=== PATIENT | female | born 1970 | race Hispanic/Latino ===

== ENCOUNTER 2016-12-30 08:50 | Day surgery (SDC) | payer BC ==
[2016-12-21 09:57] VITALS: BMI 32.8
[2016-12-30] MEDS ORDERED: ceFAZolin IV 1 gm in Dextrose 1 GM/50 ML BAG IVPB ONE (11:01)
[2016-12-30] MEDS ORDERED: ISOSULFAN BLUE 10 MG/ML ML SC ONE (11:01)
[2016-12-30] MEDS ORDERED: Propofol 10 mg/ml Inj (20 ML) ONE ×2 (12:37→12:59)
[2016-12-30] MEDS ORDERED: Midazolam 2 MG/2 ML VIAL ONE (12:37)
[2016-12-30] MEDS ORDERED: Lactated Ringer's 1,000 ML IV ONE ×2 (12:45→14:45)
--- NOTE | 2016-12-30 14:40 | PCM.SURG1 ---
Surgeon's Initial Post Op Note - Surgeon's Notes Surgeon: Dr. Donaldson Densitometrist: Dr. El PGY-3 Type of Anesthesia: General Endo Pre-Operative Diagnosis: Left breast cancer Operative Findings: see operative report Post-Operative Diagnosis: Left breast cancer Operation Performed: Left breast lumpectomy with needle localization and sentinel lymph node biopsy Specimen/Specimens Removed: left breast mass Estimated Blood Loss: EBL {In ML}: 30 Blood Products Given: N/A Drains Used: No Drains Post-Op Condition: Good Date of Surgery/Procedure: 12/30/16 Time of Surgery/Procedure: 14:40
[2016-12-30] MEDS ORDERED: HYDROmorphone 0.5 mg/0.5 ml ISec IVP PRN (14:43)
--- NOTE | 2016-12-30 15:22 | NM ---
HISTORY: 46Y Year old female with left breast cancer. TECHNIQUE: Multiple injections of 1 mCi total mCi of 99m Tc filtered sulfur colloid (total volume of 8 ml) were administered into the left breast tissue surrounding left areola and incised in for several minutes post injection subcutaneously and in deep left breast soft tissues. Anterior and oblique projection images of the chest were subsequently obtained. FINDINGS: Images demonstrate prominent uptake at the injection sites with focal uptake identified and at least 2 left axillary tail/ anterior axilla lymph nodes at the left chest. IMPRESSION: Positive uptake and 2 lymph nodes at the left axillary tails/left axilla as discussed above.
--- NOTE | 2016-12-30 15:36 | US ---
HISTORY: field 1 TECHNIQUE/FINDINGS: Timeout was called for ultrasound guided wire needle localization procedure for lesion: in the position: of the breast approximate 2-3 o'clock radius 8 cm from the nipple. The mass was identified with ultrasound at the using high-frequency transducer:. Overlying skin was marked for procedure. In a sterile field, overlying skin was cleaned. 2 cc cc of lidocaine was utilized for skin anesthesia and deep tissue anesthesia. Under ultrasound control, a needle wire assembly was advanced through the lesion in question at the left upper outer quadrant with the assembly adjusted to position the stiffener within the mass. The needle was subsequently removed. The wire was properly secured in good position. Confirmation of adequate wire placed was made by subsequent post procedure mammogram in lateral and craniocaudal views. Patient tolerated the procedure well with no complications. Postoperative specimen radiograph demonstrates the wire in close proximity to the surgical clip from the prior ultrasound-guided biopsy with adequate margins surrounding the clip and wire. OTHER FINDINGS: None. IMPRESSION: Status post successful needle wire localization of left breast mass as discussed above.
[2016-12-30 16:07] VITALS: RESP 16; TEMP 97.1; O2SAT 95
[2016-12-30 16:44] VITALS: BP 116/68; PULSE 60
--- NOTE | 2017-01-02 21:43 | OP ---
PROCEDURE DATE: 12/30/2016 PREOPERATIVE DIAGNOSIS: Carcinoma of left breast. POSTOPERATIVE DIAGNOSIS: Carcinoma of left breast. PROCEDURE: Left breast lumpectomy with needle localization and sentinel lymph node biopsy. SURGEON: Jaimie Donaldson MD DECK HAND: Dr. El. TYPE OF ANESTHESIA: General. DESCRIPTION OF OPERATION: With the patient in the supine position under adequate general anesthesia, the left breast and axilla were prepped and draped in the usual sterile manner. The patient had been injected with radioactive tracer for sentinel lymph node identification with localization to a node that appeared fairly low in the breast, possibly intramammary and additional Lymphazurin blue was infiltrated subdermally around the left areola to allow visual identification of the node. Using the Neoprobe, the hotspot was noted to be fairly close to where an ultrasound placed hookwire was noted exiting from the upper outer quadrant of the left breast. A transverse incision was made encompassing the entry point of the hookwire and a generous core of breast tissue was excised surrounding the wire. An area of radioactive activity was noted in the upper portion of the specimen along with some blue staining. The specimen was removed and sent for x-ray confirming that the lesion and marker clip were well within the specimen. Examination of the axilla and breast tissue after removal of the mass did not reveal any significant radioactivity indicating that the sentinel node was most likely contained within the specimen. Palpation within the axilla did not identify any additional grossly enlarged lymph nodes. The operative site was irrigated and closure was performed with running subcuticular suture of 4-0 Monocryl. Dry sterile dressing was applied. The patient tolerated the procedure well and transferred to the recovery room in stable condition. Estimated blood loss for the procedure was 30 mL. Jaimie Donaldson MD
--- NOTE | 2017-01-04 17:01 | MAM ---
PROCEDURE: POST WIRE LOCALIZATION LEFT MAMMOGRAM HISTORY: POST US GUIDED NEEDLE LOC (LEFT) COMPARISON: Diagnostic mammogram 12/06/2016. TECHNIQUE: Craniocaudal and medial lateral digital mammograms were performed of the left breast fall ultrasound-guided wire localization procedure preliminarily performed. Specimen radiography was also submitted post lumpectomy. FINDINGS: Post wire needle localization images demonstrate the wire passing through the lesion in question and posterior to the biopsy clip deployed after ultrasound-guided biopsy 12/06/2016. Confirmation of the wire is seen in both craniocaudal and medial lateral mammograms. Post fossa radiograph reveals the lesion in question containing the wire and biopsy clip close to the central portion of the lumpectomy specimen. Findings may communicate to the referring surgeon Dr. Donaldson in the operating room. IMPRESSION: Confirmation of wire localization of left breast mass an centralized location of wire and biopsy clip in specimen radiograph as per above.
== END 2016-12-30 16:46 | disposition home or self-care (01) ==
LOC: C.SDS 08:50
PROVIDERS: ATTEND Specialist
DX: C50.912 Malignant neoplasm of unspecified site of left female breast (principal)
CPT/HCPCS: 19285; 19301; 78195; 88304; 88307; A9541; G0206; J0690; J1100; J1170; J2001; J2250; J2405; J2704; J3010; J7120

== ENCOUNTER 2017-01-01 06:39 | Emergency (ER) | payer BC ==
[2017-01-01 06:39] VITALS: BMI 32.8
[2017-01-01 06:52] VITALS: O2SAT 100
[2017-01-01] MEDS ORDERED: HYDROmorphone 0.5 mg/0.5 ml ISec ONE (07:22)
[2017-01-01] MEDS ORDERED: Sodium Chloride 0.9% 1,000 ML IV STA (07:30)
[2017-01-01] MEDS ORDERED: HYDROmorphone 1 mg/ml ISec IVP STA ×2 (07:30→09:49)
[2017-01-01 07:40] LABS: BASO # 0.1 K/uL (0.0-0.2); BASO % 1.2 % (0.0-2.0); EOS # 0.2 K/uL (0.0-0.7); EOS % 2.1 % (0.0-4.0); HEMATOCRIT 35.9 % (34.0-47.0); LYMPH # 2.4 K/uL (1.0-4.3); LYMPH % 26.5 % (20.0-40.0); MEAN CELL VOLUME 84.8 fL (81.0-99.0); MEAN CORPUSCULAR HEMOGLOBIN 28.9 pg (27.0-31.0); MEAN CORPUSCULAR HGB CONC 34.1 g/dL (33.0-37.0); MEAN PLATELET VOLUME 8.2 fL (7.2-11.7); MONO # 0.6 K/uL (0.0-0.8); MONO % 6.9 % (0.0-10.0); RED CELL DISTRIBUTION WIDTH 13.2 % (11.5-14.5)
[2017-01-01] MEDS ORDERED: Sodium Chloride 0.9% 1,000 ML ONE (07:41)
[2017-01-01 07:47] LABS: CHLORIDE 104 mmol/L (98-107); SODIUM 136 mmol/L (132-148)
[2017-01-01 07:48] LABS: POTASSIUM 3.8 mmol/L (3.6-5.2)
[2017-01-01 07:50] LABS: ALB/GLOB RATIO 0.9 (1.0-2.1); ALKALINE PHOSPHATASE 69 U/L (38-126); ALT/SGPT 23 U/L (9-52); AST/SGOT 18 U/L (14-36); BILIRUBIN,TOTAL 0.3 mg/dL (0.2-1.3); BLOOD UREA NITROGEN 12 mg/dL (7-17); CALCIUM 8.9 mg/dl (8.6-10.4); CARBON DIOXIDE 20 mmol/L (22-30); GFR AFRICAN-AMERICAN > 60; GLUCOSE,RANDOM 83 mg/dL (65-105); TOTAL PROTEIN 7.6 g/dL (6.3-8.3)
[2017-01-01 09:24] LABS: URINE BILIRUBIN NEGATIVE (NEGATIVE); URINE BLOOD 1+ (NEGATIVE); URINE COLOR Yellow (YELLOW); URINE GLUCOSE (UA) NORMAL (Normal); URINE KETONE NEGATIVE (NEGATIVE); URINE LEUKOCYTE ESTERASE NEG Leu/uL (Negative); URINE PROTEIN NEGATIVE (NEGATIVE); URINE UROBILINOGEN NORMAL mg/dL (0.2-1.0); WBC URINE < 1 /hpf (0-5)
[2017-01-01 09:31] LABS: RBC URINE 3 /hpf (0-3)
--- NOTE | 2017-01-01 10:47 | RAD ---
PROCEDURE: CHEST RADIOGRAPH, 1 VIEW HISTORY: shoulder pain COMPARISON: Comparison is made to 12/21/2016 FINDINGS: LUNGS: No significant interval change in the lungs. PLEURA: No pneumothorax or pleural fluid seen. CARDIOVASCULAR: Normal. OSSEOUS STRUCTURES: No significant abnormalities. VISUALIZED UPPER ABDOMEN: Normal. OTHER FINDINGS: None. IMPRESSION: No active disease.
--- NOTE | 2017-01-01 10:53 | C.PDOC ---
History Of Present Illness 46 year old female presents to the ED complaining of right shoulder pain for past day and a half worsening yesterday. She states that 2 days ago she underwent a left breast lumpectomy for breast cancer by Dr. Donaldson. Patient describes pain as deep and throbbing. She reports that movement of shoulder and arm exacerbate pain, elevation of arm alleviates pain. She denies fevers, chest pain, or shortness of breath. Time Seen by Provider: 01/01/17 07:16 Chief Complaint (Nursing): Upper Extremity Problem/Injury History Per: Patient History/Exam Limitations: no limitations Onset/Duration Of Symptoms: Days Current Symptoms Are (Timing): Still Present Quality: Other (Throbbing) Exacerbating Factor(s): Movement Past Medical History Reviewed: Historical Data, Nursing Documentation, Vital Signs Vital Signs: Last Vital Signs Temp 97.5 F L 01/01/17 11:48 Pulse 57 L 01/01/17 11:48 Resp 18 01/01/17 11:48 BP 106/69 01/01/17 11:48 Pulse Ox 100 01/01/17 12:23 - Medical History PMH: Denies: Depression, Chronic Kidney Disease - [facility] Procedures APPLICATION OF SPLINT (02/24/12) Family History: States: Unknown Family Hx - Social History Hx Tobacco Use: No Hx Alcohol Use: No Hx Substance Use: No Review Of Systems Constitutional: Negative for: Fever Cardiovascular: Negative for: Chest Pain Respiratory: Negative for: Shortness of Breath Musculoskeletal: Positive for: Shoulder Pain Physical Exam - Physical Exam Appears: Non-toxic, No Acute Distress, Other (uncomfortable) Skin: Normal Color, Warm, Dry Head: Atraumatic, Normacephalic Eye(s): bilateral: Normal Inspection Neck: Normal, Supple Chest: No Tenderness Cardiovascular: Rhythm Regular Respiratory: Normal Breath Sounds Gastrointestinal/Abdominal: Soft, No Tenderness Extremity: No Swelling, Other (Arm in sling, Tenderness over anterior right shoulder and right upper inner arm, Decreased range of motion secondary to pain , No swelling, No edema, Pulses normal bilaterally ) Pulses: Right Brachial: Normal, Right Radial: Normal Neurological/Psych: Oriented x3, Normal Speech, Normal Cognition, Normal Motor, Normal Sensation ED Course And Treatment - Laboratory Results Result Diagrams: 01/01/17 07:36 01/01/17 07:36 O2 Sat by Pulse Oximetry: 100 - Other Rad Shoulder xray X-Ray: Viewed By Me, Read By Radiologist Interpretation: Accession No. : [id number]. Patient Name / ID : TARAN ONEIL / [id number]. Exam Date : 01/01/2017 07:36:42 ( Approved ). Study Comment : Sex / Age : F / 46Y. Creator : Landon Burnett MD. Dictator : Landon Burnett MD. Air Hole Driller : Basket Mender : Landon Burnett MD. Approver2 : Report Date : 01/01/2017 12:55:26. My Comment : . PROCEDURE: Radiographs of the Right Shoulder. HISTORY: non traumatic pain, left breast cancer. COMPARISON: No prior. FINDINGS: BONES: Normal. No fracture. JOINTS: Normal. Glenohumeral and acromioclavicular joints preserved. No osteoarthritis. SOFT TISSUES: Normal. OTHER FINDINGS: None. IMPRESSION: No evidence of acute fracture or dislocation. No evidence of destructive bony lesion. - CT Scan/US CT UE Other Rad Studies (CT/US): Read By Radiologist, Radiology Report Reviewed CT/US Interpretation: Accession No. : [id number]. Patient Name / ID : TARAN ONEIL / [id number]. Exam Date : 01/01/2017 10:07:00 ( Approved ). Study Comment : Sex / Age : F / 46Y. Creator : Enrique Kulkarni. Dictator : Landon Burnett MD. Air Hole Driller : Basket Mender : Landon Burnett MD. Approver2 : Report Date : 01/01/2017 10:32:52. My Comment : . PROCEDURE: CT of the right shoulder and arm. HISTORY: breast cancer, pain in the R arm / shoulder. COMPARISON: Comparison is made to the previous x-ray of the right shoulder dated 01/01/2017. TECHNIQUE: Axial and reformatted coronal and sagittal CT images of the right shoulder and right arm were obtained without IV contrast administration. Total exam DLP: 733.91. FINDINGS: There is no evidence of destructive bony lesion. There is no evidence of acute fracture or dislocation. There is either small ossicles or calcified soft tissue adjacent to the right humeral head and anterior to the glenohumeral joint measures 8.7 millimeter in the largest diameter. The possibility of calcified tendinitis should be considered. No evidence of soft tissue mass lesion in the right shoulder and right arm noted in this exam. The visualized portion of the right chest wall including the right ribs are grossly unremarkable. There is pleural based nodule measures 3.5 millimeter seen at the right lung image 65 series 3. IMPRESSION: No evidence of acute fracture or dislocation. No CT evidence of destructive bony lesion. Focal ossicles or calcified soft tissue seen adjacent to the right humeral head may represent calcified tendinitis. If clinically warranted further assessment by non emergent MRI of the right shoulder may be obtained. Medical Decision Making Medical Decision Making: Initial Plan: -Xray right shoulder -Pain management 01/01/17 07:30 Patient given dose of Dilaudid. Feeling improved. 01/01/17 08:15 On reevaluation patient states that pain has returned. Given dose of toradol. 01/01/17 09:30 Xray shows no acute changes, but some irregularity of the proximal humerus. Labs normal. CT Upper extremity and Venous duplex ordered. 01/01/17 09:50 Patient still in pain. Second dose of Dilaudid given. 01/01/17 11:30 CT scan shows calcific tendinitis. RUE duplex is negative for DVT. Patient now feels better and is stable to be d/c home with Ortho follow up. Disposition - [facility] Sushil Zapata MD [Staff Provider] - Disposition: HOME/ ROUTINE Disposition Time: 12:21 Condition: IMPROVED Additional Instructions: Follow up with PMD and Orthopedist within 1-2 days. Return to Ed if feel worse. Prescriptions: Lidocaine 5% [Lidoderm] 1 patch TP DAILY #30 patch Ibuprofen [Motrin Tab] 600 mg PO Q8 #30 tab Acetaminophen/Oxycodone Hydr [Percocet 10/325 mg Tab] 1 tab PO Q6H #20 tab Instructions: Calcific Tendinitis (ED) Forms: [employer] (Spanish) - Clinical Impression Clinical Impression: Calcific shoulder tendinitis - Scribe Statement The provider has reviewed the documentation as recorded by the Scribtomer Miller
--- NOTE | 2017-01-01 11:25 | CT ---
PROCEDURE: CT of the right shoulder and arm. HISTORY: breast cancer, pain in the R arm/ shoulder COMPARISON: Comparison is made to the previous x-ray of the right shoulder dated 01/01/2017 TECHNIQUE: Axial and reformatted coronal and sagittal CT images of the right shoulder and right arm were obtained without IV contrast administration. Total exam DLP: 733.91. FINDINGS: There is no evidence of destructive bony lesion. There is no evidence of acute fracture or dislocation. There is either small ossicles or calcified soft tissue adjacent to the right humeral head and anterior to the glenohumeral joint measures 8.7 millimeter in the largest diameter. The possibility of calcified tendinitis should be considered. No evidence of soft tissue mass lesion in the right shoulder and right arm noted in this exam. The visualized portion of the right chest wall including the right ribs are grossly unremarkable. There is pleural based nodule measures 3.5 millimeter seen at the right lung image 65 series 3. IMPRESSION: No evidence of acute fracture or dislocation. No CT evidence of destructive bony lesion. Focal ossicles or calcified soft tissue seen adjacent to the right humeral head may represent calcified tendinitis. If clinically warranted further assessment by non emergent MRI of the right shoulder may be obtained.
[2017-01-01 11:49] VITALS: BP 106/69; PULSE 57; RESP 18; TEMP 97.5
--- NOTE | 2017-01-01 12:56 | RAD ---
PROCEDURE: Radiographs of the Right Shoulder HISTORY: non traumatic pain, left breast cancer COMPARISON: No prior. FINDINGS: BONES: Normal. No fracture. JOINTS: Normal. Glenohumeral and acromioclavicular joints preserved. No osteoarthritis. SOFT TISSUES: Normal. OTHER FINDINGS: None. IMPRESSION: No evidence of acute fracture or dislocation. No evidence of destructive bony lesion.
--- NOTE | 2017-01-02 12:12 | VASCLAB ---
PROCEDURE: Right Upper Extremity Venous Duplex Exam HISTORY: RUE pain, h/o breast cancer PRIORS: None. TECHNIQUE: Right upper extremity, internal jugular, subclavian, axillary, brachial, ulnar, radial, basilic and upper cephalic veins were evaluated. Flow was assessed with color Doppler, compressibility, assessment of phasic flow and augmentation response. Report prepared by CHRISTI Vidal FINDINGS: RIGHT: 1. Internal Jugular: 1.1. Compressibility - Fully compressible: Thrombus - None : Flow - Phasic: Augmentation -Normal: Reflux - None. 2. Subclavian: 2.1. Compressibility - Fully compressible: Thrombus - None : Flow - Phasic: Augmentation -Normal: Reflux - None. 3. Axillary: 3.1. Compressibility - Fully compressible: Thrombus - None : Flow - Phasic: Augmentation -Normal: Reflux - None. 4. Brachial: 4.1. Compressibility - Fully compressible: Thrombus - None: Flow - Phasic: Augmentation -Normal: Reflux - None. 5. Ulnar: 5.1. Compressibility - Fully compressible: Thrombus - None: Flow - Phasic: Augmentation -Normal: Reflux - None. 6. Radial: 6.1. Compressibility - Fully compressible: Thrombus - None: Flow - Phasic: Augmentation - Normal: Reflux - None. 7. Cephalic: 7.1. Compressibility - Fully compressible: Thrombus - None: Flow - Phasic: Augmentation -Normal: Reflux - None. 8. Basilic: 8.1. Compressibility - Fully compressible: Thrombus - None: Flow - Phasic: Augmentation -Normal: Reflux - None. OTHER FINDINGS: Right: None. IMPRESSION: Right: No evidence of vein thrombosis of the right upper extremity with excellent venous flow. Normal valve function noted of the right side. Normal venous flow noted in the left internal jugular and left subclavian veins.
== END 2017-01-01 12:43 | disposition home or self-care (01) ==
LOC: C.ER 06:39
DX: M75.31 Calcific tendinitis of right shoulder (principal)
CPT/HCPCS: 71010; 73030; 73200; 80053; 81001; 82550; 84703; 85025; 93971; 96361; 96374; 96375; 96376; 99285; J1170; J1885; J7040

== ENCOUNTER 2018-06-07 11:38 | Emergency (ER) | payer BC ==
[2018-06-07 11:38] VITALS: BMI 32.8
[2018-06-07] MEDS ORDERED: Sodium Chloride 0.9% 1,000 ML IV STA (12:49)
[2018-06-07] MEDS ORDERED: Sodium Chloride 0.9% 1,000 ML ONE (12:57)
[2018-06-07 13:02] LABS: BASO # 0.1 K/uL (0.0-0.2); EOS # 0.2 K/uL (0.0-0.7); EOS % 3.7 % (0.0-4.0); HEMOGLOBIN 12.8 g/dL (11.0-16.0); LYMPH # 1.9 K/uL (1.0-4.3); LYMPH % 31.2 % (20.0-40.0); MEAN CORPUSCULAR HEMOGLOBIN 29.8 pg (27.0-31.0); MEAN PLATELET VOLUME 8.3 fL (7.2-11.7); MONO # 0.3 K/uL (0.0-0.8); MONO % 5.1 % (0.0-10.0); NEUT # 3.7 K/uL (1.8-7.0); RBC 4.3 Mil/uL (3.80-5.20); RED CELL DISTRIBUTION WIDTH 12.8 % (11.5-14.5); WHITE BLOOD COUNT 6.2 K/uL (4.8-10.8)
[2018-06-07 13:04] LABS: HCG,QUALITATIVE URINE NEGATIVE (NEGATIVE)
[2018-06-07 13:08] LABS: SQUAMOUS EPITHIAL 3 /hpf (0-5); URINE BILIRUBIN NEGATIVE (NEGATIVE); URINE BLOOD NEGATIVE (NEGATIVE); URINE CLARITY Clear (Clear); URINE COLOR Yellow (YELLOW); URINE GLUCOSE (UA) NORMAL (Normal); URINE LEUKOCYTE ESTERASE NEG Leu/uL (Negative); URINE PROTEIN NEGATIVE (NEGATIVE); URINE UROBILINOGEN NORMAL mg/dL (0.2-1.0)
[2018-06-07 13:10] LABS: MEAN CELL VOLUME 87.7 fL (81.0-99.0)
[2018-06-07 13:33] LABS: BARBITURATES, UR NEGATIVE (NEGATIVE); BENZODIAZEPINES, UR NEGATIVE (NEGATIVE); OPIATES, UR NEGATIVE (NEGATIVE); PHENCYCLIDINE, UR NEGATIVE (NEGATIVE)
[2018-06-07 13:41] LABS: ALB/GLOB RATIO 1.2 (1.0-2.1); ALBUMIN 3.8 g/dL (3.5-5.0); ALT/SGPT 26 U/L (9-52); AMYLASE 61 U/L (30-110); AST/SGOT 28 U/L (14-36); BLOOD UREA NITROGEN 13 mg/dL (7-17); CALCIUM 9.4 mg/dl (8.6-10.4); GFR NON-AFRICAN AMERICAN 59; LIPASE 91 U/L (23-300)
[2018-06-07 14:36] VITALS: PULSE 59
--- NOTE | 2018-06-07 15:36 | C.PDOC ---
History Of Present Illness 47 year old female presents to the ED for evaluation of generalized weakness and thirst since yesterday. Patient denies fever, chills, nausea, vomiting. Time Seen by Provider: 06/07/18 11:57 Chief Complaint (Nursing): Dizziness/Lightheaded History Per: Patient History/Exam Limitations: no limitations Onset/Duration Of Symptoms: Hrs Current Symptoms Are (Timing): Still Present Past Medical History Reviewed: Historical Data, Nursing Documentation, Vital Signs Vital Signs: Last Vital Signs Temp 98.8 F 06/07/18 11:43 Pulse 59 L 06/07/18 14:35 Resp 16 06/07/18 14:35 BP 114/60 06/07/18 14:35 Pulse Ox 99 06/07/18 14:35 - Medical History PMH: No Chronic Diseases Denies: Depression, Chronic Kidney Disease Surgical History: No Surg Hx - [facility] Procedures APPLICATION OF SPLINT (02/24/12) Family History: States: Unknown Family Hx - Social History Hx Tobacco Use: No Hx Alcohol Use: No Hx Substance Use: No - Immunization History Hx Tetanus Toxoid Vaccination: No Hx Influenza Vaccination: No Hx Pneumococcal Vaccination: No Review Of Systems Constitutional: Positive for: Weakness, Other (increased thirst ). Negative for: Fever, Chills Gastrointestinal: Negative for: Nausea, Vomiting Physical Exam - Physical Exam Appears: Non-toxic, No Acute Distress Skin: Normal Color, Warm, Dry Head: Atraumatic, Normacephalic Eye(s): bilateral: Normal Inspection Oral Mucosa: Moist Neck: Supple Chest: Symmetrical, No Deformity, No Tenderness Cardiovascular: Rhythm Regular, No Murmur Respiratory: Normal Breath Sounds, No Rales, No Rhonchi, No Wheezing Extremity: Normal ROM, Capillary Refill (less than 2 seconds ) Neurological/Psych: Oriented x3, Normal Speech, Normal Cognition Gait: Steady ED Course And Treatment - Laboratory Results Result Diagrams: 06/07/18 12:53 06/07/18 12:53 Lab Results: Total Bilirubin 0.3 mg/dL (0.2-1.3) 06/07/18 12:53 AST 28 U/L (14-36) 06/07/18 12:53 ALT 26 U/L (9-52) 06/07/18 12:53 Alkaline Phosphatase 73 U/L (38-126) 06/07/18 12:53 Total Protein 6.8 g/dL (6.3-8.3) 06/07/18 12:53 Albumin 3.8 g/dL (3.5-5.0) 06/07/18 12:53 Globulin 3.0 gm/dL (2.2-3.9) 06/07/18 12:53 Albumin/Globulin Ratio 1.2 (1.0-2.1) 06/07/18 12:53 Amylase 61 U/L (30-110) 06/07/18 12:53 Lipase 91 U/L (23-300) 06/07/18 12:53 Urine Color Yellow (YELLOW) 06/07/18 12:53 Urine Clarity Clear (Clear) 06/07/18 12:53 Urine pH 6.0 (5.0-8.0) 06/07/18 12:53 Ur Specific [place] 1.011 (1.003-1.030) 06/07/18 12:53 Urine Protein Negative mg/dL (NEGATIVE) 06/07/18 12:53 Urine Glucose (UA) Normal mg/dL (Normal) 06/07/18 12:53 Urine Ketones Negative mg/dL (NEGATIVE) 06/07/18 12:53 Urine Blood Negative (NEGATIVE) 06/07/18 12:53 Urine Nitrate Negative (NEGATIVE) 06/07/18 12:53 Urine Bilirubin Negative (NEGATIVE) 06/07/18 12:53 Urine Urobilinogen Normal mg/dL (0.2-1.0) 06/07/18 12:53 Ur Leukocyte Esterase Neg [place]/uL (Negative) 06/07/18 12:53 Urine WBC (Auto) < 1 /hpf (0-5) 06/07/18 12:53 Urine RBC (Auto) < 1 /hpf (0-3) 06/07/18 12:53 Ur Squamous Epith Cells 3 /hpf (0-5) 06/07/18 12:53 Urine HCG, Qual Negative (NEGATIVE) 06/07/18 12:53 Urine HCG, Qual Negative (NEGATIVE) 06/07/18 12:53 O2 Sat by Pulse Oximetry: 99 (on RA ) Pulse Ox Interpretation: Normal Progress Note: Bloodwork and urinalysis ordered and reviewed. Results are unremarkable. IV Fluids given. On reassessment, patient is resting comfortably, showing no signs of distress, is ambulatory in the ED without distress and is stable for discharge. Patient is reassured that her labwork is unremarkable and is advised to follow up with PMD/clinic within 1-2 days for further evalaution. Advised to return to the ED if symptoms persist or worsen. Disposition - Disposition Disposition: HOME/ ROUTINE Disposition Time: 15:35 Condition: STABLE Additional Instructions: Follow up with PMD within 1-2 days. Return to ED if feel worse. Instructions: [employer] Forms: [employer] (Luxembourgish) - Clinical Impression Clinical Impression: Dry mouth - PA / METAL LOADER / Resident Statement MD/DO has reviewed & agrees with the documentation as recorded. - Scribe Statement The provider has reviewed the documentation as recorded by the Scribe (Soraida Bartlett) All medical record entries made by the Scribe were at my direction and personally dictated by me. I have reviewed the chart and agree that the record accurately reflects my personal performance of the history, physical exam, medical decision making, and the department course for this patient. I have also personally directed, reviewed, and agree with the discharge instructions and disposition.
[2018-06-07 15:45] VITALS: BP 138/76; RESP 13; TEMP 97.9
[2018-06-07 18:32] VITALS: O2SAT 99
== END 2018-06-07 15:46 | disposition home or self-care (01) ==
LOC: C.ER 11:38
DX: R68.2 Dry mouth, unspecified (principal)
CPT/HCPCS: 80053; 81001; 82150; 82948; 83690; 83735; 84703; 85025; 96360; 99285; G0480; J7030